=== PATIENT | male | born 1950 | race Hispanic/Latino ===

== ENCOUNTER 2024-12-08 12:22 | Inpatient (IN) | payer MEDICARE, OTHER ==
[~2024-12-08] VITALS: Ht 177.8 cm; Wt 86.2 kg
--- NOTE | 2024-12-08 12:33 | NUR ---
PT JUST NOW PLACED IN ED BED 20
[2024-12-08 13:14] LABS: BASOPHILS # (AUTO) 0.01 K/uL (0.00-0.20); BASOPHILS % (AUTO) 0.1 % (0.0-5.0); EOSINOPHILS # (AUTO) 0.04 K/uL (0.00-0.70); EOSINOPHILS % (AUTO) 0.3 % (0.0-8.0); IMMATURE GRANULOCYTE ABSOLUTE 0.28 K/uL (0-1); LYMPHOCYTES # (AUTO) 1.3 K/uL (1.0-4.8); LYMPHOCYTES % (AUTO) 9.3 % (21.0-51.0); MEAN CORPUSCULAR HEMOGLOBIN 32.5 pg (27.0-33.0); MEAN CORPUSCULAR HGB CONC 34.4 g/dL (32.0-36.0); MEAN CORPUSCULAR VOLUME 94.4 fL (79-99); MONOCYTES # (AUTO) 1.5 K/uL (0.1-1.0); NEUTROPHILS # (AUTO) 10.6 K/uL (1.8-7.7); NEUTROPHILS % (AUTO) 77.3 % (40.0-77.0); PLATELET COUNT (AUTO) 253 K/uL (130-400); RED CELL DISTRIBUTION WIDTH 12.5 % (11.0-15.5); WHITE BLOOD COUNT (AUTO) 13.8 K/uL (4.8-10.8)
[2024-12-08 13:22] LABS: POTASSIUM 4.3 mmol/L (3.5-5.1)
[2024-12-08 13:23] LABS: INR 1.05 (0.85-1.15); PROTHROMBIN TIME 11.1 SEC (9.6-11.6)
[2024-12-08 13:24] LABS: PARTIAL THROMBOPLASTIN TIME 30.6 SEC (26.3-35.5)
[2024-12-08 13:47] LABS: APPEARANCE,URINE TURBID (CLEAR); BILIRUBIN,URINE NEGATIVE (NEGATIVE); COLOR,URINE LIGHT-ORANGE (YELLOW); GLUCOSE, URINE (UA) NEGATIVE (NEGATIVE); KETONES,URINE NEGATIVE (NEGATIVE); LEUKOCYTE ESTERASE ,URINE 500 Leu/uL (NEGATIVE); NITRATE,URINE NEGATIVE (NEGATIVE); OCCULT BLOOD,URINE MODERATE (NEGATIVE); PROTEIN,URINE 50 mg/dL (NEGATIVE); UROBILINOGEN,URINE 0.2 mg/dL (0.2-1.0)
[2024-12-08 13:48] LABS: B-TYPE NATRIURETIC PEPTIDE 241 pg/mL (0-100)
[2024-12-08] MEDS: LACTATED RINGERS 1000ML 1,000 ML IV ONE (13:51)
[2024-12-08 13:58] LABS: ADD UA MICROSCOPIC YES
[2024-12-08 13:59] LABS: MUCUS,URINE Rare LPF (None Seen); WBC,URINE TNTC /HPF (0-1)
[2024-12-08 14:02] LABS: BACTERIA,URINE Moderate /HPF (None Seen)
--- NOTE | 2024-12-08 15:30 | ERN ---
General Chief Complaint: Urinary Retention Stated Complaint: HYPOTENSION/ PYRUIA Time Seen by MD: 12:29 History of Present Illness Initial Comments 74-year-old male history of BPH and hypotension and possibly CKD presents for episode of hypotension with dizziness. Patient reports that over the last week or so he has felt fatigued. He has been working outside more than usual so he thinks he may be dehydrated. He visited [facility] today as an outpatient and was found to have a blood pressure in the 60s. He denies any fevers, vomiting, diarrhea, dysuria or any other systemic illness. On arrival here, his blood pressure has improved. Patient reports he was recently told that he has weak kidneys/kidney disease, and he is pending follow up as an outpatient with the electric shipyard operator. Allergies: Coded Allergies: No Known Drug Allergies (Unverified Allergy, Unknown, 12/08/24) Past Medical History Past Medical History: Arrythmia, Hypotension, Prostatitis, UTI Medical History Other: [facility] Past Surgical History: None ROS Dictation CONSTITUTIONAL: Fatigue HEAD/FACE: No signs of trauma. EENT: No eye pain, no blurred vision, no tearing, no double vision, no ear pain, no ear discharge, no nose pain, no nasal congestion, no throat pain, no throat swelling, no mouth pain. RESPIRATORY: No cough, no orthopnea, no SOB, no stridor, no wheezing. CARDIOVASCULAR: No chest pain, no edema, no palpitations, no syncope. GASTROINTESTINAL/ABDOMINAL: No abdominal pain, no constipation, no diarrhea, no nausea, no vomiting. GENITOURINARY: No abnormal discharge, no dysuria, no frequent urination, no hematuria. No complaints of pain in the genitals. MUSCULOSKELETAL: No back pain, no gout, no joint pain, no joint swelling, no muscle pain, no muscle stiffness, no neck pain. INTEGUMENTARY: No change in color, no change in hair/nails, no dryness, no lesion, no lumps, no rash. NEUROLOGICAL/PSYCH: No anxiety, not depressed, no emotional problem, no headache, no numbness, no pre-existing deficit, no history of seizures, no tremors, no weakness. HEMATOLOGIC/LYMPHATIC: Not anemic, no history of blood clots, no apparent bleeding, no bruising, glands not swollen. All Systems Negative, Except as Noted. Physical Exam Physical Exam Dictation VITAL SIGNS: Reviewed. GENERAL APPEARANCE: Alert, oriented x3, no acute distress, obese. HEAD AND FACE: Non-traumatic. EYES: PERRL, pink conjunctivas, eyelid no trauma, anterior chamber clear. EARS: Pinnas intact and no signs of trauma or erythema. Ear canals clear and no discharge. TMs no erythema. NOSE: No discharge, no bleeding. OROPHARYNX: Mouth normal, teeth no caries, tongue pink. Pharynx clear, no erythema. Tonsils no exudates, no abscesses noted. Mucous membrane moist. NECK: Supple, non-tender, no thyromegaly, no masses, no JVD, no bruits. BREAST: Deferred. CHEST: No tenderness, no crepitus, no paradoxical movement, no retractions. LUNGS: Clear, well-ventilated, symmetric, no rales, no wheezing, no rhonchi, no stridor, good breath sounds bilaterally. HEART: Regular rate, regular rhythm, no murmur, no gallops. VASCULAR: No peripheral edema. ABDOMEN: Soft, positive bowel sounds, nondistended, no guarding, nontender, no rebound, no masses no hepatomegaly, no splenomegaly, no Borges's sign, no hernias. RECTAL: Deferred. GENITAL: Deferred. NEUROLOGICAL: Normal speech, gross motor function intact, gross sensory function intact. MUSCULOSKELETAL: Neck nontender, full range of motion, back nontender, full range of motion. EXTREMITIES: Nontender, full range of motion. SKIN: Color pink, dry, no turgor, no rash, no lacerations, no abrasions, no contusions. LYMPHATICS: Deferred. Results Laboratory and Microbiology Lab and Micro Result Laboratory Tests Test 12/08/24 12:59 12/08/24 13:29 White Blood Count 13.8 K/uL (4.8-10.8) H Red Blood Count 3.60 MIL/uL (4.50-6.20) L Hemoglobin 11.7 g/dL (14.0-18.0) L Hematocrit 34.0 % (42-54) L Mean Corpuscular Volume 94.4 fL (79-99) Mean Corpuscular Hemoglobin 32.5 pg (27.0-33.0) Mean Corpuscular Hemoglobin Concent 34.4 g/dL (32.0-36.0) Red Cell Distribution Width 12.5 % (11.0-15.5) Platelet Count 253 K/uL (130-400) Mean Platelet Volume 9.1 fL (7.5-10.5) Immature Granulocyte % (Auto) 2.0 % (0-1) H Neutrophils (%) (Auto) 77.3 % (40.0-77.0) H Lymphocytes (%) (Auto) 9.3 % (21.0-51.0) L Monocytes (%) (Auto) 11.0 % (3.0-13.0) Eosinophils (%) (Auto) 0.3 % (0.0-8.0) Basophils (%) (Auto) 0.1 % (0.0-5.0) Neutrophils # (Auto) 10.6 K/uL (1.8-7.7) H Lymphocytes # (Auto) 1.3 K/uL (1.0-4.8) Monocytes # (Auto) 1.5 K/uL (0.1-1.0) H Eosinophils # (Auto) 0.04 K/uL (0.00-0.70) Basophils # (Auto) 0.01 K/uL (0.00-0.20) Absolute Immature Granulocyte (auto 0.28 K/uL (0-1) Nucleated Red Blood Cells 0.0 % (0.0-0.19) White Cell Morphology Comment See comments Prothrombin Time 11.1 SEC (9.6-11.6) Prothromb Time International Ratio 1.05 (0.85-1.15) Activated Partial Thromboplast Time 30.6 SEC (26.3-35.5) Sodium Level 136 mmol/L (136-145) Potassium Level 4.3 mmol/L (3.5-5.1) Chloride Level 104 mmol/L (101-111) Carbon Dioxide Level 19 mmol/L (21-32) L Blood Urea Nitrogen 74 mg/dL (7-18) H Creatinine 4.0 mg/dL (0.5-1.3) H Glomerular Filtration Rate Calc 15 mL/min (>90) Random Glucose 106 mg/dL (70-105) H Lactic Acid Level 1.2 mmol/L (0.8-2.5) Total Calcium 8.2 mg/dL (8.5-10.1) L Total Creatine Kinase 28 U/L (21-232) Troponin I High Sensitivity 10.9 ng/L (4-75) B-Type Natriuretic Peptide 241 pg/mL (0-100) H Urine Color LIGHT-ORANGE (YELLOW) Urine Appearance TURBID (CLEAR) Urine pH 6.0 (5.0-8.0) Urine Specific [place] 1.008 (1.001-1.031) Urine Protein 50 mg/dL (NEGATIVE) H Urine Glucose (UA) NEGATIVE mg/dL (NEGATIVE) Urine Ketones NEGATIVE mg/dL (NEGATIVE) Urine Occult Blood MODERATE (NEGATIVE) H Urine Nitrate NEGATIVE (NEGATIVE) Urine Bilirubin NEGATIVE mg/dL (NEGATIVE) Urine Urobilinogen 0.2 mg/dL (0.2-1.0) Urine Leukocyte Esterase 500 Ekta/uL (NEGATIVE) H Urine RBC 11-25 /HPF (0-1) H Urine WBC TNTC /HPF (0-1) H Urine WBC Clumps (Auto) 2-5 /HPF (0-1) H Urine Bacteria Moderate /HPF (None Seen) H MDM CC: Fatigue over the last week, episode of hypotension Historian: Patient Comorbidities: Hypertension, BPH, likely CKD Limitations by social determinants of health Differential diagnosis includes vasovagal episode, syncope, sepsis, dehydration, electrolyte abnormality, arrhythmia, other. Vital signs: Blood pressure on arrival 114/72 otherwise vital signs faustino. His clinical exam is unremarkable. He is nontoxic in appearance. EKG: Sinus rhythm, rate of 104, normal axis, good R-wave progression, intervals are stable no STEMI. Independently interpreted by me. Labs (independently ordered and interpreted by me): Leukocytosis 13.8 K left shift no bands. Normocytic anemia hemoglobin 11.7. Coags are stable. The electrolytes are unremarkable. He does have a bicarb of 19 BUN is 74 creatinine of 4.0 GFR 15. Lactic acid stable, BNP and troponin are stable. According to the family, they said that his GFR maybe around the 40s, but they are unsure. This is maybe an DARIN. His urinalysis also shows moderate occult blood leuk esterase WBCs and bacteria. Consistent with a urinary tract infection. Treatment in ED: 2 L lactated Ringer's, Rocephin. Plan: Admission for UTI, AKA sepsis. ED Course Orders Procedure Category Date Status Time Urinalysis Profile LAB 12/08/24 Complete 12:37 Cardiac Panel LAB 12/08/24 Complete 12:44 Cbc With Differential LAB 12/08/24 Complete 12:44 Basic Metabolic Panel LAB 12/08/24 Complete 12:44 B-Type Natriuretic LAB 12/08/24 Complete Peptide 12:44 Prothrombin Time With LAB 12/08/24 Complete INR 12:44 Partial LAB 12/08/24 Complete Thromboplastin Time 12:44 Lactated Ringers PHA 12/08/24 Complete 1000ml (Lactated 13:00 Lactic Acid LAB 12/08/24 Complete 12:44 Blood Cult [place] 12/08/24 In Process 12:44 Culture Urine [place] 12/08/24 In Process 13:58 Ceftriaxone 1g Vial PHA 12/08/24 Complete (Rocephine 1g Inj) 14:30 12 Lead Ekg Tracing- EKG 12/08/24 Logged Technical 15:10 Troponin I High LAB 12/08/24 Logged Sensitivity 15:11 Lactated Ringers PHA 12/08/24 In Process 1000ml (Lactated 15:30 Current Medications Medications (Trade) Dose Ordered Sig/Moon Route PRN Reason Start Time Stop Time Status Last Admin Dose Admin Ceftriaxone Sodium (ROCEphine 1G INJ) 1 gm ONCE ONCE IVPB 12/08/24 14:30 12/08/24 14:31 DC Lactated Ringer's 1,000 ml @ 0 mls/hr ONCE ONCE IV 12/08/24 13:00 12/08/24 13:01 DC 12/08/24 13:51 Lactated Ringer's (Lactated Ringers 1000ml) 1,000 ml BOLUS IV 12/08/24 15:30 01/07/25 15:29 Vital Signs Date Time Temp Pulse Resp B/P (MAP) Pulse Ox O2 Delivery O2 Flow Rate FiO2 12/08/24 14:00 98.2 88 18 137/78 97 Room Air* 0 21 12/08/24 12:50 98.2 93 18 114/72 97 Room Air* 0 21 12/08/24 12:27 98.2 93 16 114/72 99 Room Air 0 DX & DISP Disposition: Inpatient ([facility]) Departure Impression: Primary Impression: UTI (urinary tract infection) Additional Impressions: DARIN (acute kidney injury), Transient hypotension Critical Time: 30 minutes (Critical Care Procedure NoteAuthorized and Performed by: meTotal critical care time: Approximately 36 minutesDue to a high probability of clinically significant, life threatening deterioration, the pa kedar required my highest level of preparedness to intervene emergently and I personally spent this critical care time directly and personally managing the patient. This critical care time included obtaining a history; examining the patient; pulse oximetry; ordering and review of studies; arranging urgent treatment with development of a management plan; evaluation of patient's resp onse to treatment; frequent reassessment; and, discussions with other providers.This critical care time was performed to assess and manage the high probability of imminent, life-threatening deterioration that could result in multi-organ failure. It was exclusive of separately billable procedures and treating other patients and teaching time.Please see MDM section and the rest of the note for further information on patient assessment and treatment.) Condition: Stable Referrals: ZOË MITCHELL MD (PCP) BEATRIZ MICHELE DO Dec 08, 2024 15:30
--- NOTE | 2024-12-08 15:48 | EKG ---
[facility] Test Date: 2024-12-08 Test Time: 15:15:51 Pat Name: GULSHAN FRANCISCO Department: [facility] Room: 319 Gender: M Cracker Off: [id number] : 1950 Requested By: BEATRIZ MICHELE Order Number: [id number] Reading MD: Maria Guadalupe Vang Measurements Intervals [place] Rate: 104 P: 59 SC: 203 QRS: 98 QRSD: 131 T: 1 QT: 353 QTc: 465 Interpretive Statements Sinus tachycardia IVCD, consider RBBB No previous ECG available for comparison Electronically Signed On 12-09-2024 13:21:34 CDT by Maria Guadalupe Vang Please click the below link to view image of tracing.
[2024-12-08] MEDS ORDERED: DiphenhydrAMINE HCL 50 MG/ML VIAL IV PRN (16:00)
[2024-12-08] MEDS ORDERED: ALPRAZolam 0.5 MG TABLET PO PRN (16:00)
[2024-12-08] MEDS ORDERED: DiphenhydrAMINE HCL 25 MG CAPSULE PO PRN (16:00)
[2024-12-08] MEDS ORDERED: LOPERAMIDE HCL 2 MG CAP PO PRN (16:00)
[2024-12-08] MEDS ORDERED: doCUSate SODIUM 100 MG CAP PO PRN (16:00)
[2024-12-08] MEDS ORDERED: acetaMINOPHEN 325 MG TAB PO PRN (16:00)
[2024-12-08] MEDS ORDERED: polyETHYLene GLYCol 3350 17 GM POWD.PACK PO PRN (16:00)
[2024-12-08] MEDS ORDERED: guaiFENesin SUGAR-FREE 100 MG/5 ML UDCUP PO PRN (16:00)
[2024-12-08] MEDS ORDERED: LIDOCAINE HCL 2% VISCOUS 30 ML, MAG/ALUM/SIMETH 30ML 30 ML, DICYCLOMINE HCL 20 MG PO PRN (16:00)
[2024-12-08] MEDS ORDERED: LACTULOSE 20 GM/30 ML UDCUP PO PRN (16:00)
[2024-12-08] MEDS ORDERED: MAG/ALUM/SIMETH 30 ML UDCUP PO PRN (16:00)
[2024-12-08] MEDS ORDERED: ARTIFICAL TEARS SOL 15 ML OP PRN (16:00)
[2024-12-08] MEDS ORDERED: NITROGLYCERIN 0.4 MG SL TAB SL PRN (16:00)
[2024-12-08] MEDS ORDERED: BENZOCAINE/MENTH/CETYLPYRD CL 1 EACH LOZENGE MM PRN (16:00)
[2024-12-08] MEDS ORDERED: ondanSETRON 4MG INJ IV PRN (16:00)
[2024-12-08] MEDS ORDERED: guaiFENesin-DM 200/20MG 10ML PO PRN (16:00)
[2024-12-08] MEDS ORDERED: ZOLPidem TARTrate 5 MG TAB PO PRN (16:00)
[2024-12-08] MEDS: cefTRIAXone 1G VIAL IVPB ONE (16:23)
[2024-12-08 16:32] VITALS: TEMP 100.6
[2024-12-08] MEDS: acetaMINOPHEN 325 MG TAB PO PRN (16:32)
--- NOTE | 2024-12-08 17:20 | NUR ---
REPORT GIVEN TO FRANKLYN GARCIA 319
--- NOTE | 2024-12-08 17:24 | HP ---
[facility] HISTORY & PHYSICAL Date Patient Seen: Dec 08, 2024 Time of Visit: 1929 Supervising Physician: [ Dr. Blayne Cerda Primary Care Physician: [Dr. Malloy] Outpatient Specialists: [ ] Inpatient Consults: [Dr. Giraldo-nephro, Dr. Smith-urology ] PROBLEM LIST: Sepsis-POA Acute cystitis-POA DARIN on CKD4-POA Dehydration-POA R/o pyelonephritis-POA Severe right hydronephrosis and mild hydroureter-POA Acute transient hypotension, resolved-POA BPH PLAN: -Admit to medsurg unit -IV fluid for hydration -Start on IV Rocephin -Obtain urine electrolytes and renal US -Obtain CT AP to r/o pyelonephritis and hydronephrosis -Consult Dr. Giraldo for nephrology -Monitor WBC trends, fever curve, SIRS/mews score and culture results -Obtain baseline ABG to rule-out metabolic acidosis -Start on sodium bicarb PO -Consulted Dr. Smith, urology-appreciate eval and recx concerning severe right hydronephrosis and mild hydroureter; okayed to insert christie HPI: [Electronic Technologist services provided by [employer]. Mr. Jackson is a 74-year-old male with PMH significant for BPH who was sent by his PCP's clinic due to BP in the 60's. Patient reports decreased urine output, fever, chills, dysuria, generalized weakness, fatigue and urinary frequency since last Wednesday. He came today to Dr. Malloy's clinic and was told his BP was low and needs to go to the hospital. He was told he will need to have a kidney stent placed but he is just waiting to be referred to a urologist. He denies abdominal or flank pain. Patient claims his only problem is BPH and denies other medical conditions. He was flagged meeting the sepsis criteria and was given IV fluids and IV Rocephin. Physical assessment was unrevealing without abdominal tenderness. On the side note: consulted urologist, Dr. Smith and will see the patient tonight. okayed to insert christie. ] PAST MEDICAL HX: see above PAST SURGICAL HX: noncontributory SOCIAL HISTORY: No tobacco, ETOH, or illicit drug use Coded Allergies: No Known Drug Allergies (Unverified Allergy, Unknown, 12/08/24) REVIEW OF SYSTEMS: 12 point ROS reviewed with patient. Pertinent positives mentioned above. Otherwise negative. PHYSICAL EXAM: GENERAL: alert, weak, awake oriented x 3 HEENT: EOMI, Sclera non icteric, dry mucosa, poor dentition NECK: Supple, no JVD, trachea midline LUNGS: Clear breath sounds bilaterally. No wheezes HEART: Regular rate and rhythm. Normal S1 and S2, without murmurs ABD: Abdomen soft, nontender. Bowel sounds present EXT: No clubbing cyanosis or edema NEURO: Alert and oriented to person, follows commands Vital Signs (last 8hr) Date Time Temp Pulse Resp B/P (MAP) Pulse Ox O2 Delivery O2 Flow Rate FiO2 12/08/24 17:10 101.1 114 20 129/72 99 Room Air* 0 12/08/24 16:32 100.6 12/08/24 16:29 100.6 111 20 143/72 97 Room Air* 0 12/08/24 14:00 98.2 88 18 137/78 97 Room Air* 0 12/08/24 12:50 98.2 93 18 114/72 97 Room Air* 0 12/08/24 12:27 98.2 93 16 114/72 99 Room Air 0 LABS: Hematology Labs: Test 12/08/24 12:59 Range/Units White Blood Count 13.8 H 4.8-10.8 K/uL Red Blood Count 3.60 L 4.50-6.20 MIL/uL Hemoglobin 11.7 L 14.0-18.0 g/dL Hematocrit 34.0 L 42-54 % Mean Corpuscular Volume 94.4 79-99 fL Mean Corpuscular Hemoglobin 32.5 27.0-33.0 pg Mean Corpuscular Hemoglobin Concent 34.4 32.0-36.0 g/dL Red Cell Distribution Width 12.5 11.0-15.5 % Platelet Count 253 130-400 K/uL Mean Platelet Volume 9.1 7.5-10.5 fL Immature Granulocyte % (Auto) 2.0 H 0-1 % Neutrophils (%) (Auto) 77.3 H 40.0-77.0 % Lymphocytes (%) (Auto) 9.3 L 21.0-51.0 % Monocytes (%) (Auto) 11.0 3.0-13.0 % Eosinophils (%) (Auto) 0.3 0.0-8.0 % Basophils (%) (Auto) 0.1 0.0-5.0 % Neutrophils # (Auto) 10.6 H 1.8-7.7 K/uL Lymphocytes # (Auto) 1.3 1.0-4.8 K/uL Monocytes # (Auto) 1.5 H 0.1-1.0 K/uL Eosinophils # (Auto) 0.04 0.00-0.70 K/uL Basophils # (Auto) 0.01 0.00-0.20 K/uL Absolute Immature Granulocyte (auto 0.28 0-1 K/uL Nucleated Red Blood Cells 0.0 0.0-0.19 % White Cell Morphology Comment See comments Chemistry Labs: Test 12/08/24 15:27 12/08/24 12:59 Range/Units Troponin I High Sensitivity 13 4-75 ng/L Sodium Level 136 136-145 mmol/L Potassium Level 4.3 3.5-5.1 mmol/L Chloride Level 104 101-111 mmol/L Carbon Dioxide Level 19 L 21-32 mmol/L Blood Urea Nitrogen 74 H 7-18 mg/dL Creatinine 4.0 H 0.5-1.3 mg/dL Glomerular Filtration Rate Calc 15 >90 mL/min Random Glucose 106 H 70-105 mg/dL Lactic Acid Level 1.2 0.8-2.5 mmol/L Total Calcium 8.2 L 8.5-10.1 mg/dL Total Creatine Kinase 28 21-232 U/L B-Type Natriuretic Peptide 241 H 0-100 pg/mL Coagulation Labs: Test 12/08/24 12:59 Range/Units Prothrombin Time 11.1 9.6-11.6 SEC Prothromb Time International Ratio 1.05 0.85-1.15 Activated Partial Thromboplast Time 30.6 26.3-35.5 SEC DIAGNOSTICS / RADIOLOGY RESULTS: [ ] PLAN NEURO: Minimize central acting medications as possible. Maintain fall precautions, adequate lighting during the day PULMONARY: Supplemental 02 as needed. Maintain aspiration precautions at all times CARDIOVASCULAR: Follow hemodynamics. Vital signs per facility protocol GI & NUTRITION: Continue with nutritional support. Continue stool softeners and laxatives as needed. KIDNEYS & ELECTROLYTES: Strict monitoring of intake, output and overall fluid balance. Avoid nephrotoxic medications to the extent possible. Medications to be dosed according to renal function. Monitor electrolytes and replace as needed ENDOCRINE: Maintain blood glucose between 100-180 at all times. Hypoglycemia protocol in place INFECTIOUS DISEASE: Trend temperature, WBC and procalcitonin level Follow cultures, deescalate antibiotics as soon as possible. Panculture if new onset fever ONCOLOGY/HEMATOLOGY/COAGULATION: Monitor for s/s of bleeding Monitor hemoglobin, coagulation studies as needed SKIN: Pressure ulcer prevention per facility protocol Specialty mattress ORTHO/REHAB: Continue PT/OT Prophylaxis: Continue GI and DVT prophylaxis Code Status: Full Resuscitation Disposition: TBD Other: Total patient care time: 35 minutes CALLIE HADDAD Dec 08, 2024 17:24
--- NOTE | 2024-12-08 18:47 | HMCIMG ---
ULTRASOUND RENAL COMPLETE INDICATION: chronic kidney disease TECHNIQUE: Routine ultrasound of the kidneys and urinary bladder with grayscale and color Doppler imaging was performed in real-time, and subsequently made available for review. COMPARISON: No prior studies available for comparison. FINDINGS: The right kidney measures 13.6 x 6.4 x 8.4 cm. No abnormal mass demonstrated. Severe hydronephrosis. The left kidney measures 8.8 x 4.1 x 4.5 cm. No abnormal mass demonstrated. No evidence for hydronephrosis or shadowing stone. Urinary bladder is distended with associated trabeculated encinas. Wall thickness measures up to 0.7 cm. 1.1 cm right urinary bladder wall diverticulum demonstrated. Prostate gland measures 3.9 x 3.3 x 3.9 cm. IMPRESSION: 1. Urinary bladder distention and severe right hydronephrosis. 2. Normal-sized prostate gland.
--- NOTE | 2024-12-08 19:10 | HMCIMG ---
CT ABDOMEN WITHOUT CONTRAST. CT PELVIS WITHOUT CONTRAST. INDICATION: Pyelonephritis/CKD? TECHNIQUE: Routine transaxial imaging using 5 mm slice thickness through the abdomen and pelvis without the administration of IV contrast. Thin slice reconstructions are also provided. Coronal and sagittal reformatted images acquired for interpretation. CT was performed with one or more of the following dose reduction techniques: Automated exposure control, adjustment of the mA and/or kV according to patient size, or use of iterative reconstruction technique. COMPARISON: None FINDINGS: ON NONCONTRAST IMAGING: ABDOMEN: Heart size is normal. Visible lung bases are clear. No abnormal left renal calcifications, hydronephrosis, perinephric inflammation, or proximal hydroureter detected. Severe right hydronephrosis and mild right hydroureter. The liver is normal in size and smooth in contour without biliary duct dilation. The spleen is normal in size and attenuation. The gallbladder appears normal. The pancreas appears normal without pancreatic duct dilation. The adrenal glands appear normal. No significant abdominal, retrocrural or retroperitoneal adenopathy noted. No evidence for intra-abdominal free air or organized fluid collection. Macro aorta PELVIS: Urinary bladder is distended and trabeculations noted along the urinary bladder wall. 4 cm diverticulum along the left urinary bladder wall. Smaller diverticulum along the right urinary bladder wall is better visualized on the recent sonographic imaging. Much smaller diverticulum measuring up to 1.0 cm along the urinary bladder dome. No evidence for free air or organized pelvic fluid collection. No significant pelvic adenopathy detected. Several diverticula along the distal colon. Terminal ileum appears unremarkable. The appendix appears normal. Prostate gland is normal in size and calcifications noted posteriorly. Visible osseous structures are intact. IMPRESSION: 1. Severe right hydronephrosis and mild right hydroureter, perhaps related to underlying stricture near the right ureteropelvic and/or ureterovesicular junctions. 2. Moderate urinary bladder distention and several small urinary bladder diverticula. 3. Distal colonic diverticulosis.
[2024-12-08 19:29] LABS: ABG BASE EXCESS -9.9 mmol/L (-2.0-3.0); ABG HCO3 13.3 mmol/L (21.0-28.0); ABG OXYGEN SATURATION 97.5 % (94.0-98.0); ABG PCO2 24 mmHg (35-48); ABG PH 7.362 (7.350-7.450); PO2, ARTERIAL BG 100.8 mmHg (83.0-108.0); VENT MODE, BG ROOMAIR (ROOM AIR)
[2024-12-08 20:00] VITALS: BP 99/58; PULSE 92; RESP 17; TEMP 98.1; O2SAT 98
[2024-12-08] MEDS: tamSULOsin HCL 0.4 MG CAP.ER.24H PO ONE ×2 (20:00→20:10)
--- NOTE | 2024-12-08 20:00 | NUR ---
SENIOR RADIATION PROTECTION TECHNICIAN RECEIVED REPORT FROM AM NURSE RADHA THAT PT JUST GOT BACK TO ROOM FROM CT. PT STILL PENDING ADMISSION. NEW ORDERS FOR BLADDER SCAN SEEN. CHANGED PT'S CLOTHES INTO HOSPITAL GOWN. NON-SKIN SOCKS PLACED ON PT. PLACED COMFORTABLY IN BED. BLADDER SCANNED PT AT 1950 AND SEEN 609 CC IN BLADDER. SENIOR RADIATION PROTECTION TECHNICIAN CALLIE IN TO SEE PT. REPORTED BLADDER SCAN RESULTS. V/S MONITORED BY PCP BP =99/58. SENIOR RADIATION PROTECTION TECHNICIAN ORDERED TO JUST GIVE ONE CAP OF FLOMAX. MEDICATED PT. SENIOR RADIATION PROTECTION TECHNICIAN STATED TO WAIT ON F/C INSERTION HE IS TRYING TO GET A HOLD OF DR THORNE AT THIS TIME. NEW ORDERS GIVEN, PLEASE REFER TO CPOE. ORIENTED PT TO ROOM AND UNIT. IN FOR MORE CARE AND MANAGEMENT. Addendum: 12/08/24 at 2247 by JUDITH ARMSTRONG RN RN Amended: Links added.
--- NOTE | 2024-12-08 20:40 | NUR ---
BRAKE HOLDER FARIDA LEDESMA INFORMS MANUFACTURING GROUP LEADER THAT DR THORNE HAS NOT ANSWERED HIS CALL YET. NEW ORDERS WERE PLACED, PLEASE REFER TO CPOE.
[2024-12-08] MEDS ORDERED: FAMOTIDINE 20MG TAB PO SCH (21:00)
[2024-12-08] MEDS ORDERED: FAMOTIDINE 20MG VIAL IV SCH (21:00)
[2024-12-08] MEDS: SODIUM BICARBONATE 650 MG TAB PO SCH (21:06)
--- NOTE | 2024-12-08 21:10 | NUR ---
MEDS NEW MED ORDER GIVEN, TOLERATED WELL. PT ONLY URINATED 30CC, SENT TO LAB FOR ANALYSIS. PT INFORMED THAT F/C ORDERED AND WILL BE INSERTED. PT VERBALIZES UNDERSTANDING.
--- NOTE | 2024-12-08 21:30 | NUR ---
F/C INSERTED F/C ON PT, IRA[place] 16, TOLERATED WELL. EVACUATED 650CC FROM F/C. KEPT COMFORTABLE IN BED. CALL LIGHT WITHIN REACH. ENCOURAGED TO REST AND SLEEP. CALL LIGHT WITHIN REACH.
[2024-12-08] MEDS ORDERED: TAMSULOSIN PO (22:08)
[2024-12-08] MEDS ORDERED: METF-444 PO (22:08)
[2024-12-08] MEDS ORDERED: CARV12.511 PO (22:08)
[2024-12-08] MEDS ORDERED: MIDO5TAB4 PO (22:08)
[2024-12-08] MEDS ORDERED: APIX5TAB PO (22:08)
[2024-12-08] MEDS ORDERED: FINA5TAB41 PO (22:08)
[2024-12-08] MEDS ORDERED: ATOR20TA65 PO (22:08)
[2024-12-08] MEDS: LACTATED RINGERS 1000ML IV SCH (22:17)
--- NOTE | 2024-12-08 23:55 | NUR ---
CONSULT DR THORNE IN TO SEE PT. NO NEW ORDERS GIVEN.
[2024-12-09] VITALS (8 sets, daily range): BP systolic 105–131; BP diastolic 56–73; PULSE 80–102; RESP 16–20; TEMP 97.9–99.9; O2SAT 96–97
--- NOTE | 2024-12-09 00:09 | CONS ---
CONSULTATION NOTE Date of Service: Dec 09, 2024 Reason for Consultation: Distended bladder/severe right-sided hydroureteronephrosis Requesting Physician: Blayne Cerda MD HISTORY OF PRESENT ILLNESS: 74-year-old male with PMH significant for BPH who was sent by his PCP's clinic due to BP in the 60's. Patient reports decreased urine output, fever, chills, dysuria, generalized weakness, fatigue and urinary frequency since last Wednesday. He came today to Dr. Malloy's clinic and was tod his BP was low and needs to go to the hospital. He was told he will need to have a stent places but he is just waiting to be referred to a urologist. He denies abdominal or flank pain. Patient claims his only problem is BPH and denies other medical conditions. He was flagged meeting the sepsis criteria and was given IV fluids and IV Rocephin. Physical assessment was unrevealing Patient seems to be dealing with chronic issues including urinary frequency and urgency. It is not quite clear if he takes any prostate medications in the home. A CT scan abdomen and pelvis obtained on presentation did show a severely distended bladder with diverticuli as well as right-sided hydroureteronephrosis with tortuosity of the ureter suggestive of a chronic process. Upon our urging a Parrish catheter was inserted in his draining lots of urine. REVIEW OF SYSTEMS CONSTITUTIONAL: Denies fever, chills, or fatigue. HEAD/FACE: No signs of trauma. EENT: Denies eye pain, blurred vision, double vision, or light sensitivity. RESPIRATORY: Denies shortness of breath, cough, wheezing CARDIOVASCULAR: Denies chest pain, palpitation, syncope GASTROINTESTINAL/ABDOMINAL: Denies abdominal pain, constipation, diarrhea, nausea or vomiting GENITOURINARY: Denies dysuria or hematuria. MUSCULOSKELETAL: Denies joint pain, tenderness, or trauma. INTEGUMENTARY: Denies rash or itchiness NEUROLOGICAL/PSYCH: Denies anxiety, depression, heat or cold intolerance. PAST MEDICAL HISTORY: Recurrent urinary tract infections BPH PAST SURGICAL HISTORY: Denies any previous surgeries PAST SOCIAL HISTORY: Denies ethanol, smoking and recreational drugs FAMILY HISTORY: Noncontributory to presenting complaint Coded Allergies: No Known Drug Allergies (Unverified Allergy, Unknown, 12/08/24) PHYSICAL EXAM EYES: Anicteric. Pupils equal and reactive. HENT: No oral thrush seen, moist Oral mucosa NECK: Supple, no JVD or thyromegaly. LUNGS: Good air entry. No rales, no rhonchi. CARDIOVASCULAR: S1, S2 regular. No murmur heard. ABDOMEN: Soft, non tender, bowel sounds present, no organomegaly CENTRAL NERVOUS SYSTEM: Awake, alert, oriented x 3. No focal deficits. SKIN: No rashes, no swelling. LYMPHATICS: No peripheral lymphadenopathy MUSCULOSKELETAL: No joint swelling, erythema or tenderness. EXTREMITIES: No cyanosis or clubbing BACK: No deformity, no pressure ulcer. GENITOURINARY: Parrish catheter is in place draining andrea colored urine Vital Sign (Last 24 Hours) 12/08/24 20:00 Temp 98.1 Pulse 92 Resp 17 B/P (MAP) 99/58 Pulse Ox 98 O2 Delivery Room Air O2 Flow Rate 0 FiO2 21 Intake & Output (last 24hrs) 12/08/24 12/08/24 12/09/24 15:00 23:00 07:00 Intake Total 200 ml Output Total 30 ml Balance 170 ml LABS: Laboratory: Test 12/08/24 21:00 12/08/24 20:24 12/08/24 19:28 12/08/24 15:27 Range/Units Urine Random Creatinine 54.00 30-135 mg/dL Urine Random Sodium 57 40-220 mmol/l Urine Random Potassium 18 L 25-125 mmol/L Urine Random Chloride 62 L 110-250 mmol/L Whole Blood Glucose 98 70-110 MG/DL Lactic Acid Level 1.1 0.8-2.5 mmol/L Procalcitonin 0.26 0.05-0.5 ng/mL Blood Gas Specimen Type Arterial Arterial Blood pH 7.362 7.350-7.450 Arterial Blood Partial Pressure CO2 24 L 35-48 mmHg Arterial Blood Partial Pressure O2 100.8 83.0-108.0 mmHg Arterial Blood HCO3 13.3 L 21.0-28.0 mmol/L Arterial Blood Oxygen Saturation 97.5 94.0-98.0 % Arterial Blood Base Excess -9.9 L -2.0-3.0 mmol/L Blood Gas Temperature 37.0 35.5-37.0 CELSIUS Blood Gas Vent Mode ROOMAIR ROOM AIR FiO2 21.0 % Blood Gas Specimen Comment RB NURSE GEOVANNA Troponin I High Sensitivity 13 4-75 ng/L Test 12/08/24 13:29 12/08/24 12:59 Range/Units Urine Color LIGHT-ORANGE YELLOW Urine Appearance TURBID CLEAR Urine pH 6.0 5.0-8.0 Urine Specific Johnston 1.008 1.001-1.031 Urine Protein 50 H NEGATIVE mg/dL Urine Glucose (UA) NEGATIVE NEGATIVE mg/dL Urine Ketones NEGATIVE NEGATIVE mg/dL Urine Occult Blood MODERATE H NEGATIVE Urine Nitrate NEGATIVE NEGATIVE Urine Bilirubin NEGATIVE NEGATIVE mg/dL Urine Urobilinogen 0.2 0.2-1.0 mg/dL Urine Leukocyte Esterase 500 H NEGATIVE Ekta/uL Urine RBC 11-25 H 0-1 /HPF Urine WBC TNTC H 0-1 /HPF Urine WBC Clumps (Auto) 2-5 H 0-1 /HPF Urine Bacteria Moderate H None Seen /HPF White Blood Count 13.8 H 4.8-10.8 K/uL Red Blood Count 3.60 L 4.50-6.20 MIL/uL Hemoglobin 11.7 L 14.0-18.0 g/dL Hematocrit 34.0 L 42-54 % Mean Corpuscular Volume 94.4 79-99 fL Mean Corpuscular Hemoglobin 32.5 27.0-33.0 pg Mean Corpuscular Hemoglobin Concent 34.4 32.0-36.0 g/dL Red Cell Distribution Width 12.5 11.0-15.5 % Platelet Count 253 130-400 K/uL Mean Platelet Volume 9.1 7.5-10.5 fL Immature Granulocyte % (Auto) 2.0 H 0-1 % Neutrophils (%) (Auto) 77.3 H 40.0-77.0 % Lymphocytes (%) (Auto) 9.3 L 21.0-51.0 % Monocytes (%) (Auto) 11.0 3.0-13.0 % Eosinophils (%) (Auto) 0.3 0.0-8.0 % Basophils (%) (Auto) 0.1 0.0-5.0 % Neutrophils # (Auto) 10.6 H 1.8-7.7 K/uL Lymphocytes # (Auto) 1.3 1.0-4.8 K/uL Monocytes # (Auto) 1.5 H 0.1-1.0 K/uL Eosinophils # (Auto) 0.04 0.00-0.70 K/uL Basophils # (Auto) 0.01 0.00-0.20 K/uL Absolute Immature Granulocyte (auto 0.28 0-1 K/uL Nucleated Red Blood Cells 0.0 0.0-0.19 % White Cell Morphology Comment See comments Prothrombin Time 11.1 9.6-11.6 SEC Prothromb Time International Ratio 1.05 0.85-1.15 Activated Partial Thromboplast Time 30.6 26.3-35.5 SEC Sodium Level 136 136-145 mmol/L Potassium Level 4.3 3.5-5.1 mmol/L Chloride Level 104 101-111 mmol/L Carbon Dioxide Level 19 L 21-32 mmol/L Blood Urea Nitrogen 74 H 7-18 mg/dL Creatinine 4.0 H 0.5-1.3 mg/dL Glomerular Filtration Rate Calc 15 >90 mL/min Random Glucose 106 H 70-105 mg/dL Total Calcium 8.2 L 8.5-10.1 mg/dL Total Creatine Kinase 28 21-232 U/L B-Type Natriuretic Peptide 241 H 0-100 pg/mL DIAGNOSTICS / RADIOLOGY: CT stone protocol shows a severely distended bladder with diverticuli, prostate is not too prominent, right-sided hydroureteronephrosis with proximal tortuosity of the ureter ASSESSMENT: 74-year-old man presents with chronic issues including urinary complaints diagn osed on imaging to have a chronic right-sided hydroureteronephrosis with bladder distention PLAN: 1. His bladder is so distended with diverticuli. We recommended the Parrish catheter be placed to gravity. 2. He has isolated right-sided hydroureteronephrosis with tortuosity, a phenomenon we normally see sometimes in an attempt for the system to equilibrate and dissipate is high pressures in the lower tract 3. Patient is going to need further management and further investigations. 60 minutes spent to complete a consult more than half of the time spent at bedside in counseling and coordination of care and addressing all questions and concerns post by patient, some time was spent discussing with members of his care team, the rest of the time was spent reviewing medical records. NEHA THORNE MD Dec 09, 2024 00:09
--- NOTE | 2024-12-09 05:40 | NUR ---
ROUNDS PT SLEPT AT INTERVALS DURING THE SHIFT. PT WAS UP TO THE RESTROOM AND HAD A BM. PT BACK IN BED AND KEPT COMFORTABLE. NO CONCERNS VERBALIZED AT THIS TIME. NO DISTRESS NOTED. CALL LIGHT WITHIN REACH. FOR MORE CARE.
[2024-12-09 06:06] LABS: BILIRUBIN,TOTAL 0.3 mg/dL (0.2-1.0); CREATININE 3.8 mg/dL (0.5-1.3); POTASSIUM 4.3 mmol/L (3.5-5.1); TOTAL PROTEIN, SERUM 6.4 g/dL (6.0-8.3)
--- NOTE | 2024-12-09 09:37 | PN ---
[facility] PROGRESS NOTE Date Patient Seen: Dec 09, 2024 Time of Visit: 09:37 Supervising Physician: Dr. Pedro Jimenez Primary Care Physician: [Dr. Malloy] Outpatient Specialists: [ ] Inpatient Consults: [Dr. Giraldo-nephro, Dr. Smith-urology ] PROBLEM LIST: Sepsis-POA Acute cystitis-POA DARIN on CKD4-POA Dehydration-POA R/o pyelonephritis-POA Severe right hydronephrosis and mild hydroureter-POA Acute transient hypotension, resolved-POA BPH PLAN: -Admit to medsurg unit -IV fluid for hydration -Start on IV Rocephin -Obtain urine electrolytes and renal US -Obtain CT AP to r/o pyelonephritis and hydronephrosis -Consult Dr. Giraldo for nephrology -Monitor WBC trends, fever curve, SIRS/mews score and culture results -Obtain baseline ABG to rule-out metabolic acidosis -Start on sodium bicarb PO -Consulted Dr. Smith, urology-appreciate eval and recx concerning severe right hydronephrosis and mild hydroureter; okayed to insert christie INTERVAL HISTORY: Patient evaluated at bedside with his daughter present, he is currently sitting up eating dinner. Patient's white count today is 13.8 and creatinine 3.8. He continues on Rocephin at this time. Patient is being followed by Urology at this time with further plans for possible intervention on this admission. Urine in his Christie bag is dark however there does not appear to be any pyuria or hematuria at this time. Patient advised that we will continue with medical management at this time and follow directions provided by Urology. Patient expressed understanding, daughter with several questions at bedside that were answered. Continue with antibiotics and fluid resuscitation at this time. REVIEW OF SYSTEMS: 12 point ROS reviewed with patient. Pertinent positives mentioned above. Otherwise negative. PHYSICAL EXAM: GENERAL: alert, weak, awake oriented x 3 HEENT: EOMI, Sclera non icteric, dry mucosa, poor dentition NECK: Supple, no JVD, trachea midline LUNGS: Clear breath sounds bilaterally. No wheezes HEART: Regular rate and rhythm. Normal S1 and S2, without murmurs ABD: Abdomen soft, nontender. Bowel sounds present EXT: No clubbing cyanosis or edema NEURO: Alert and oriented to person, follows commands Vital Signs (last 8hr) Date Time Temp Pulse Resp B/P (MAP) Pulse Ox O2 Delivery O2 Flow Rate FiO2 12/09/24 08:00 98.4 96 16 114/69 96 Room Air 21 12/09/24 04:28 99.9 102 18 129/64 100 Room Air LABS: Hematology Labs: Test 12/08/24 12:59 Range/Units White Blood Count 13.8 H 4.8-10.8 K/uL Red Blood Count 3.60 L 4.50-6.20 MIL/uL Hemoglobin 11.7 L 14.0-18.0 g/dL Hematocrit 34.0 L 42-54 % Mean Corpuscular Volume 94.4 79-99 fL Mean Corpuscular Hemoglobin 32.5 27.0-33.0 pg Mean Corpuscular Hemoglobin Concent 34.4 32.0-36.0 g/dL Red Cell Distribution Width 12.5 11.0-15.5 % Platelet Count 253 130-400 K/uL Mean Platelet Volume 9.1 7.5-10.5 fL Immature Granulocyte % (Auto) 2.0 H 0-1 % Neutrophils (%) (Auto) 77.3 H 40.0-77.0 % Lymphocytes (%) (Auto) 9.3 L 21.0-51.0 % Monocytes (%) (Auto) 11.0 3.0-13.0 % Eosinophils (%) (Auto) 0.3 0.0-8.0 % Basophils (%) (Auto) 0.1 0.0-5.0 % Neutrophils # (Auto) 10.6 H 1.8-7.7 K/uL Lymphocytes # (Auto) 1.3 1.0-4.8 K/uL Monocytes # (Auto) 1.5 H 0.1-1.0 K/uL Eosinophils # (Auto) 0.04 0.00-0.70 K/uL Basophils # (Auto) 0.01 0.00-0.20 K/uL Absolute Immature Granulocyte (auto 0.28 0-1 K/uL Nucleated Red Blood Cells 0.0 0.0-0.19 % White Cell Morphology Comment See comments Chemistry Labs: Test 12/09/24 05:40 12/09/24 05:27 12/08/24 20:24 12/08/24 15:27 Range/Units Sodium Level 139 136-145 mmol/L Potassium Level 4.3 3.5-5.1 mmol/L Chloride Level 110 101-111 mmol/L Carbon Dioxide Level 18 L 21-32 mmol/L Blood Urea Nitrogen 70 H 7-18 mg/dL Creatinine 3.8 H 0.5-1.3 mg/dL Glomerular Filtration Rate Calc 16 >90 mL/min Random Glucose 94 70-105 mg/dL Total Calcium 8.8 8.5-10.1 mg/dL Total Bilirubin 0.3 0.2-1.0 mg/dL Aspartate Amino Transf (AST/SGOT) 15 10-37 U/L Alanine Aminotransferase (ALT/SGPT) 10 L 12-78 U/L Alkaline Phosphatase 88 50-136 U/L Total Protein 6.4 6.0-8.3 g/dL Albumin 2.0 L 3.5-5.0 g/dL Whole Blood Glucose 83 70-110 MG/DL Lactic Acid Level 1.1 0.8-2.5 mmol/L Procalcitonin 0.26 0.05-0.5 ng/mL Troponin I High Sensitivity 13 4-75 ng/L Test 12/08/24 12:59 Range/Units Total Creatine Kinase 28 21-232 U/L B-Type Natriuretic Peptide 241 H 0-100 pg/mL Coagulation Labs: Test 12/08/24 12:59 Range/Units Prothrombin Time 11.1 9.6-11.6 SEC Prothromb Time International Ratio 1.05 0.85-1.15 Activated Partial Thromboplast Time 30.6 26.3-35.5 SEC DIAGNOSTICS / RADIOLOGY RESULTS: [ ] PLAN NEURO: Minimize central acting medications as possible. Maintain fall precautions, adequate lighting during the day PULMONARY: Supplemental 02 as needed. Maintain aspiration precautions at all times CARDIOVASCULAR: Follow hemodynamics. Vital signs per facility protocol GI & NUTRITION: Continue with nutritional support. Continue stool softeners and laxatives as needed. KIDNEYS & ELECTROLYTES: Strict monitoring of intake, output and overall fluid balance. Avoid nephrotoxic medications to the extent possible. Medications to be dosed according to renal function. Monitor electrolytes and replace as needed ENDOCRINE: Maintain blood glucose between 100-180 at all times. Hypoglycemia protocol in place INFECTIOUS DISEASE: Trend temperature, WBC and procalcitonin level Follow cultures, deescalate antibiotics as soon as possible. Panculture if new onset fever ONCOLOGY/HEMATOLOGY/COAGULATION: Monitor for s/s of bleeding Monitor hemoglobin, coagulation studies as needed SKIN: Pressure ulcer prevention per facility protocol Specialty mattress ORTHO/REHAB: Continue PT/OT Prophylaxis: Continue GI and DVT prophylaxis Code Status: Full Resuscitation Disposition: TBD Other: Total patient care time: 35 minutes SAIGE SCOTT Dec 09, 2024 09:37
[2024-12-09] MEDS: cefTRIAXone 2GM VIAL IVPB SCH (09:44)
[2024-12-09] MEDS: FAMOTIDINE 20MG TAB PO SCH (09:44)
--- NOTE | 2024-12-09 12:42 | CONS ---
REFERRING PHYSICIAN: Blayne Lindsey MD REASON FOR CONSULTATION: Renal failure. HISTORY OF PRESENT ILLNESS: A 74-year-old male with a history of known BPH. The patient presented to the hospital with complaints of difficulty with urination. The patient was having fever and chills at home. In the Emergency Room, the patient was found to have significant pyuria and was started on antibiotics. The patient's CT scan revealed distended bladder with right-sided hydronephrosis. The patient was seen by Urology. Parrish catheter was placed. The patient's laboratory values revealed significant renal dysfunction and the patient being seen in consultation for all of the above. PAST MEDICAL HISTORY: BPH and hypertension. PAST SURGICAL HISTORY: No surgeries. SOCIAL HISTORY: He lives independently. No active tobacco use. FAMILY HISTORY: There is no renal disease in the family. ALLERGIES: There are no allergies. MEDICATIONS: Noted. REVIEW OF SYSTEMS: GENERAL: He is feeling improved since admission. HEENT: No change in vision. No change in hearing. CARDIOVASCULAR: There is no current chest pain or palpitations. PULMONARY: There is no shortness of breath. GASTROINTESTINAL: He has been started on a diet. MUSCULOSKELETAL: Complaints of weakness. NEUROLOGIC: No seizures or focal deficits. PSYCHIATRIC: No history of hallucination or psychosis. ENDOCRINE: He denies diabetes mellitus or thyroid disease. HEME: No history of anemia or malignancy. PHYSICAL EXAMINATION: VITAL SIGNS: Blood pressure is 129/64, pulse in the 100s. T-max was 101 degrees Fahrenheit. GENERAL: He is a chronically ill male, elderly, lying in bed on the medical floor. HEENT: Head is atraumatic. Pupils are equal, roving to light. Oropharynx is without exudate. Nares clear. NECK: There is no JVP. There is no thyromegaly. No mass. CARDIOVASCULAR: Regular. There is no S3 or S4 gallop. LUNGS: Coarse with equal thoracic movement. ABDOMEN: Soft, nondistended, nontender. EXTREMITIES: There is no clubbing or cyanosis. NEUROLOGICAL: He is awake. He is alert. He is oriented. SKIN: Reveals no rashes or nodules. BACK: There is no CVA tenderness. No back deformities. LABORATORY DATA: Hemoglobin 11, hematocrit 34, white count is 14,000. Sodium 139, potassium 4.3, chloride 110, bicarbonate is 18, BUN 70, creatinine is 3.8. Urinalysis reveals pyuria. Urine culture grew gram-negative michelle. Sensitivities are pending. IMPRESSION: * Acute on chronic renal failure. * Obstructive uropathy. * Pyelonephritis. * BPH. PLAN: The patient presents to the hospital with acute renal failure. The patient with evidence of significant hydronephrosis. Parrish catheter has been placed. The patient was seen by Urology. The patient does have evidence of significant pyuria and has been started on antibiotics. Cultures are all pending. The patient has been placed on sodium bicarb for the acidosis. All labs can be repeated in the a.m. There is no acute need for any form of renal replacement therapy at this time. Once the patient is discharged, he had to follow up with the Urology. We will continue to follow closely. I did have a long discussion with the patient and family, all questions were answered. TID: [id number] RECEIPT: [id number]
[2024-12-10] VITALS (7 sets, daily range): BP systolic 100–122; BP diastolic 57–70; PULSE 82–91; RESP 16–20; TEMP 97.4–98; O2SAT 95–96
[2024-12-10 05:53] LABS: BASOPHILS # (AUTO) 0.02 K/uL (0.00-0.20); BASOPHILS % (AUTO) 0.2 % (0.0-5.0); EOSINOPHILS # (AUTO) 0.14 K/uL (0.00-0.70); EOSINOPHILS % (AUTO) 1.1 % (0.0-8.0); HEMATOCRIT 34.8 % (42-54); IMMATURE GRANULOCYTE ABSOLUTE 0.19 K/uL (0-1); LYMPHOCYTES # (AUTO) 1.1 K/uL (1.0-4.8); LYMPHOCYTES % (AUTO) 8.6 % (21.0-51.0); MEAN CORPUSCULAR HEMOGLOBIN 31.9 pg (27.0-33.0); MEAN CORPUSCULAR HGB CONC 33.6 g/dL (32.0-36.0); MEAN CORPUSCULAR VOLUME 94.8 fL (79-99); MONOCYTES # (AUTO) 1.1 K/uL (0.1-1.0); MONOCYTES % (AUTO) 8.9 % (3.0-13.0); NEUTROPHILS # (AUTO) 9.8 K/uL (1.8-7.7); NEUTROPHILS % (AUTO) 79.7 % (40.0-77.0); PLATELET COUNT (AUTO) 313 K/uL (130-400); RED BLOOD CELL COUNT(AUTO) 3.67 MIL/uL (4.50-6.20); RED CELL DISTRIBUTION WIDTH 12.7 % (11.0-15.5); WHITE BLOOD COUNT (AUTO) 12.3 K/uL (4.8-10.8)
[2024-12-10 06:06] LABS: CREATININE 3.4 mg/dL (0.5-1.3); PHOSPHORUS 3.6 mg/dL (2.5-4.9); POTASSIUM 4.2 mmol/L (3.5-5.1)
[2024-12-10] MEDS ORDERED: levoFLOXacin 750 MG/D5W 150ML BAG IV SCH (09:30)
--- NOTE | 2024-12-10 09:40 | PN ---
[facility] PROGRESS NOTE Date Patient Seen: Dec 10, 2024 Time of Visit: 09:40 Supervising Physician: Dr. Pedro Jimenez Primary Care Physician: [Dr. Malloy] Outpatient Specialists: [ ] Inpatient Consults: [Dr. Giraldo-nephro, Dr. Smith-urology ] PROBLEM LIST: Sepsis-POA Acute cystitis-POA DARIN on CKD4-POA Dehydration-POA R/o pyelonephritis-POA Severe right hydronephrosis and mild hydroureter-POA Acute transient hypotension, resolved-POA BPH PLAN: -Admit to medsurg unit -IV fluid for hydration -Start on IV Rocephin -Obtain urine electrolytes and renal US -Obtain CT AP to r/o pyelonephritis and hydronephrosis -Consult Dr. Giraldo for nephrology -Monitor WBC trends, fever curve, SIRS/mews score and culture results -Obtain baseline ABG to rule-out metabolic acidosis -Start on sodium bicarb PO -Consulted Dr. Smith, urology-appreciate eval and recx concerning severe right hydronephrosis and mild hydroureter; okayed to insert christie INTERVAL HISTORY: Patient evaluated at bedside with his daughter present, he is sitting up at the moment, eating and tolerating his lunch. Patient's urine in the Christie bag appears light yellow, only small had few clots seen in the line. He denies any discomfort at this time. Patient positive for Pseudomonas in the urine, he has been switched to levofloxacin as of today. Urology has visited with the patient, there is a CT of the abdomen and pelvis without contrast ordered for tomorrow to ensure drainage of hydronephrosis. If there is not drainage patient could possibly undergo stenting on this admission, otherwise patient was cleared by Urology to discharge with Christie in place and visit him as outpatient. Patient and daughter have been updated on the current treatment plan and enter in agreement at this time. REVIEW OF SYSTEMS: 12 point ROS reviewed with patient. Pertinent positives mentioned above. Otherwise negative. PHYSICAL EXAM: GENERAL: alert, weak, awake oriented x 3 HEENT: EOMI, Sclera non icteric, dry mucosa, poor dentition NECK: Supple, no JVD, trachea midline LUNGS: Clear breath sounds bilaterally. No wheezes HEART: Regular rate and rhythm. Normal S1 and S2, without murmurs ABD: Abdomen soft, nontender. Bowel sounds present EXT: No clubbing cyanosis or edema NEURO: Alert and oriented to person, follows commands Vital Signs (last 8hr) Date Time Temp Pulse Resp B/P (MAP) Pulse Ox O2 Delivery O2 Flow Rate FiO2 12/10/24 08:00 97.9 84 16 117/70 96 Room Air 21 12/10/24 03:46 98.1 87 20 122/70 95 Room Air LABS: Hematology Labs: Test 12/10/24 05:26 12/08/24 12:59 Range/Units White Blood Count 12.3 H 4.8-10.8 K/uL Red Blood Count 3.67 L 4.50-6.20 MIL/uL Hemoglobin 11.7 L 14.0-18.0 g/dL Hematocrit 34.8 L 42-54 % Mean Corpuscular Volume 94.8 79-99 fL Mean Corpuscular Hemoglobin 31.9 27.0-33.0 pg Mean Corpuscular Hemoglobin Concent 33.6 32.0-36.0 g/dL Red Cell Distribution Width 12.7 11.0-15.5 % Platelet Count 313 130-400 K/uL Mean Platelet Volume 9.0 7.5-10.5 fL Immature Granulocyte % (Auto) 1.5 H 0-1 % Neutrophils (%) (Auto) 79.7 H 40.0-77.0 % Lymphocytes (%) (Auto) 8.6 L 21.0-51.0 % Monocytes (%) (Auto) 8.9 3.0-13.0 % Eosinophils (%) (Auto) 1.1 0.0-8.0 % Basophils (%) (Auto) 0.2 0.0-5.0 % Neutrophils # (Auto) 9.8 H 1.8-7.7 K/uL Lymphocytes # (Auto) 1.1 1.0-4.8 K/uL Monocytes # (Auto) 1.1 H 0.1-1.0 K/uL Eosinophils # (Auto) 0.14 0.00-0.70 K/uL Basophils # (Auto) 0.02 0.00-0.20 K/uL Absolute Immature Granulocyte (auto 0.19 0-1 K/uL Nucleated Red Blood Cells 0.0 0.0-0.19 % White Cell Morphology Comment See comments Chemistry Labs: Test 12/10/24 05:26 12/10/24 05:21 12/09/24 05:40 12/08/24 20:24 Range/Units Sodium Level 143 136-145 mmol/L Potassium Level 4.2 3.5-5.1 mmol/L Chloride Level 110 101-111 mmol/L Carbon Dioxide Level 23 21-32 mmol/L Blood Urea Nitrogen 59 H 7-18 mg/dL Creatinine 3.4 H 0.5-1.3 mg/dL Glomerular Filtration Rate Calc 18 >90 mL/min Random Glucose 106 H 70-105 mg/dL Total Calcium 8.7 8.5-10.1 mg/dL Phosphorus Level 3.6 2.5-4.9 mg/dL Whole Blood Glucose 72 70-110 MG/DL Total Bilirubin 0.3 0.2-1.0 mg/dL Aspartate Amino Transf (AST/SGOT) 15 10-37 U/L Alanine Aminotransferase (ALT/SGPT) 10 L 12-78 U/L Alkaline Phosphatase 88 50-136 U/L Total Protein 6.4 6.0-8.3 g/dL Albumin 2.0 L 3.5-5.0 g/dL Lactic Acid Level 1.1 0.8-2.5 mmol/L Procalcitonin 0.26 0.05-0.5 ng/mL Test 12/08/24 15:27 12/08/24 12:59 Range/Units Troponin I High Sensitivity 13 4-75 ng/L Total Creatine Kinase 28 21-232 U/L B-Type Natriuretic Peptide 241 H 0-100 pg/mL Coagulation Labs: Test 12/08/24 12:59 Range/Units Prothrombin Time 11.1 9.6-11.6 SEC Prothromb Time International Ratio 1.05 0.85-1.15 Activated Partial Thromboplast Time 30.6 26.3-35.5 SEC DIAGNOSTICS / RADIOLOGY RESULTS: [ ] PLAN NEURO: Minimize central acting medications as possible. Maintain fall precautions, adequate lighting during the day PULMONARY: Supplemental 02 as needed. Maintain aspiration precautions at all times CARDIOVASCULAR: Follow hemodynamics. Vital signs per facility protocol GI & NUTRITION: Continue with nutritional support. Continue stool softeners and laxatives as needed. KIDNEYS & ELECTROLYTES: Strict monitoring of intake, output and overall fluid balance. Avoid nephrotoxic medications to the extent possible. Medications to be dosed according to renal function. Monitor electrolytes and replace as needed ENDOCRINE: Maintain blood glucose between 100-180 at all times. Hypoglycemia protocol in place INFECTIOUS DISEASE: Trend temperature, WBC and procalcitonin level Follow cultures, deescalate antibiotics as soon as possible. Panculture if new onset fever ONCOLOGY/HEMATOLOGY/COAGULATION: Monitor for s/s of bleeding Monitor hemoglobin, coagulation studies as needed SKIN: Pressure ulcer prevention per facility protocol Specialty mattress ORTHO/REHAB: Continue PT/OT Prophylaxis: Continue GI and DVT prophylaxis Code Status: Full Resuscitation Disposition: TBD Other: Total patient care time: 35 minutes SAIGE SCOTT Dec 10, 2024 09:40
[2024-12-10] MEDS: levoFLOXacin 750 MG/D5W 150 ML 150 ML IV SCH (10:06)
--- NOTE | 2024-12-10 11:45 | PN ---
PROGRESS NOTE Date of Service: Dec 10, 2024 Time of Service: 11:42 SUBJECTIVE: Patient doing much better. Resting comfortably in a chair. Daughter present at bedside and we had a very long conversation. He already has a Parrish catheter in place the distal draining turbid urine. Blood pressures are holding steady. Renal function tests show a trend towards improvement. REVIEW OF SYSTEMS CONSTITUTIONAL: Denies fever, chills, or fatigue. HEAD/FACE: No signs of trauma. EENT: Denies eye pain, blurred vision, double vision, or light sensitivity. RESPIRATORY: Denies shortness of breath, cough, wheezing CARDIOVASCULAR: Denies chest pain, palpitation, syncope GASTROINTESTINAL/ABDOMINAL: Denies abdominal pain, constipation, diarrhea, nausea or vomiting GENITOURINARY: Denies dysuria or hematuria. MUSCULOSKELETAL: Denies joint pain, tenderness, or trauma. INTEGUMENTARY: Denies rash or itchiness NEUROLOGICAL/PSYCH: Denies anxiety, depression, heat or cold intolerance. PHYSICAL EXAM EYES: Anicteric. Pupils equal and reactive. HENT: No oral thrush seen, moist Oral mucosa NECK: Supple, no JVD or thyromegaly. LUNGS: Good air entry. No rales, no rhonchi. CARDIOVASCULAR: S1, S2 regular. No murmur heard. ABDOMEN: Soft, non tender, bowel sounds present, no organomegaly CENTRAL NERVOUS SYSTEM: Awake, alert, oriented x 3. No focal deficits. SKIN: No rashes, no swelling. LYMPHATICS: No peripheral lymphadenopathy MUSCULOSKELETAL: No joint swelling, erythema or tenderness. EXTREMITIES: No cyanosis or clubbing BACK: No deformity, no pressure ulcer. GENITOURINARY: Parrish catheter is in place draining andrea colored and turbid urine Vital Signs (last 8hr) Date Time Temp Pulse Resp B/P (MAP) Pulse Ox O2 Delivery O2 Flow Rate FiO2 12/10/24 08:00 97.9 84 16 117/70 96 Room Air 21 12/10/24 03:46 98.1 87 20 122/70 95 Room Air LABS: Laboratory: Test 12/10/24 05:26 12/10/24 05:21 12/09/24 05:40 12/08/24 21:00 Range/Units White Blood Count 12.3 H 4.8-10.8 K/uL Red Blood Count 3.67 L 4.50-6.20 MIL/uL Hemoglobin 11.7 L 14.0-18.0 g/dL Hematocrit 34.8 L 42-54 % Mean Corpuscular Volume 94.8 79-99 fL Mean Corpuscular Hemoglobin 31.9 27.0-33.0 pg Mean Corpuscular Hemoglobin Concent 33.6 32.0-36.0 g/dL Red Cell Distribution Width 12.7 11.0-15.5 % Platelet Count 313 130-400 K/uL Mean Platelet Volume 9.0 7.5-10.5 fL Immature Granulocyte % (Auto) 1.5 H 0-1 % Neutrophils (%) (Auto) 79.7 H 40.0-77.0 % Lymphocytes (%) (Auto) 8.6 L 21.0-51.0 % Monocytes (%) (Auto) 8.9 3.0-13.0 % Eosinophils (%) (Auto) 1.1 0.0-8.0 % Basophils (%) (Auto) 0.2 0.0-5.0 % Neutrophils # (Auto) 9.8 H 1.8-7.7 K/uL Lymphocytes # (Auto) 1.1 1.0-4.8 K/uL Monocytes # (Auto) 1.1 H 0.1-1.0 K/uL Eosinophils # (Auto) 0.14 0.00-0.70 K/uL Basophils # (Auto) 0.02 0.00-0.20 K/uL Absolute Immature Granulocyte (auto 0.19 0-1 K/uL Nucleated Red Blood Cells 0.0 0.0-0.19 % Sodium Level 143 136-145 mmol/L Potassium Level 4.2 3.5-5.1 mmol/L Chloride Level 110 101-111 mmol/L Carbon Dioxide Level 23 21-32 mmol/L Blood Urea Nitrogen 59 H 7-18 mg/dL Creatinine 3.4 H 0.5-1.3 mg/dL Glomerular Filtration Rate Calc 18 >90 mL/min Random Glucose 106 H 70-105 mg/dL Total Calcium 8.7 8.5-10.1 mg/dL Phosphorus Level 3.6 2.5-4.9 mg/dL Whole Blood Glucose 72 70-110 MG/DL Total Bilirubin 0.3 0.2-1.0 mg/dL Aspartate Amino Transf (AST/SGOT) 15 10-37 U/L Alanine Aminotransferase (ALT/SGPT) 10 L 12-78 U/L Alkaline Phosphatase 88 50-136 U/L Total Protein 6.4 6.0-8.3 g/dL Albumin 2.0 L 3.5-5.0 g/dL Urine Random Creatinine 54.00 30-135 mg/dL Urine Random Sodium 57 40-220 mmol/l Urine Random Potassium 18 L 25-125 mmol/L Urine Random Chloride 62 L 110-250 mmol/L Test 12/08/24 20:24 12/08/24 19:28 12/08/24 15:27 12/08/24 13:29 Range/Units Lactic Acid Level 1.1 0.8-2.5 mmol/L Procalcitonin 0.26 0.05-0.5 ng/mL Blood Gas Specimen Type Arterial Arterial Blood pH 7.362 7.350-7.450 Arterial Blood Partial Pressure CO2 24 L 35-48 mmHg Arterial Blood Partial Pressure O2 100.8 83.0-108.0 mmHg Arterial Blood HCO3 13.3 L 21.0-28.0 mmol/L Arterial Blood Oxygen Saturation 97.5 94.0-98.0 % Arterial Blood Base Excess -9.9 L -2.0-3.0 mmol/L Blood Gas Temperature 37.0 35.5-37.0 CELSIUS Blood Gas Vent Mode ROOMAIR ROOM AIR FiO2 21.0 % Blood Gas Specimen Comment RB NURSE MIRAND Troponin I High Sensitivity 13 4-75 ng/L Urine Color LIGHT-ORANGE YELLOW Urine Appearance TURBID CLEAR Urine pH 6.0 5.0-8.0 Urine Specific [place] 1.008 1.001-1.031 Urine Protein 50 H NEGATIVE mg/dL Urine Glucose (UA) NEGATIVE NEGATIVE mg/dL Urine Ketones NEGATIVE NEGATIVE mg/dL Urine Occult Blood MODERATE H NEGATIVE Urine Nitrate NEGATIVE NEGATIVE Urine Bilirubin NEGATIVE NEGATIVE mg/dL Urine Urobilinogen 0.2 0.2-1.0 mg/dL Urine Leukocyte Esterase 500 H NEGATIVE [place]/uL Urine RBC 11-25 H 0-1 /HPF Urine WBC TNTC H 0-1 /HPF Urine WBC Clumps (Auto) 2-5 H 0-1 /HPF Urine Bacteria Moderate H None Seen /HPF Test 12/08/24 12:59 Range/Units White Cell Morphology Comment See comments Prothrombin Time 11.1 9.6-11.6 SEC Prothromb Time International Ratio 1.05 0.85-1.15 Activated Partial Thromboplast Time 30.6 26.3-35.5 SEC Total Creatine Kinase 28 21-232 U/L B-Type Natriuretic Peptide 241 H 0-100 pg/mL DIAGNOSTICS / RADIOLOGY: CT stone protocol shows a severely distended bladder with diverticuli, prostate is not too prominent, right-sided hydroureteronephrosis with proximal tortuosity of the ureter ASSESSMENT: 74-year-old man presents with chronic issues including urinary complaints diagnosed on imaging to have a chronic right-sided hydroureteronephrosis with bladder distention PLAN: 1. His bladder is so distended with diverticuli. We recommended the Parrish catheter be placed to gravity. Parrish catheter continues to drain turbid urine. 2. He has isolated right-sided hydroureteronephrosis with tortuosity. Renal function tests improving. We will obtain a repeat CT scan to be obtained tomorrow 12/11/2024 and if there was appropriate drainage of the upper tract and I will recommend patient be discharged home with a Parrish catheter. If however there is not an appropriate drainage then we can consider an intervention in- house such as stent placement before patient leaves the hospital. 3. Patient is going to need further management and further investigations in an ambulatory setting including urodynamics. 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 5 minutes spent completing this visit, more than half of the time was spent discussing with patient as well as daughter present at bedside. All their questions were answered to their satisfaction. Some time was spent discussing with members of his care team. The rest of the time was spent reviewing medical records. NEHA THORNE MD Dec 10, 2024 11:45
--- NOTE | 2024-12-10 14:03 | PN ---
FOLLOWUP PROGRESS NOTE SUBJECTIVE: The patient is a 74-year-old male with a history of hypertension, presents with a history of known obstructive uropathy. The patient presented with a Parrish catheter placed. The patient's renal function continues to improve. The patient's workup did reveal hydronephrosis. The patient was seen by Urology. He remains on the antibiotics, and the patient is being seen as a followup visit for all of the above. REVIEW OF SYSTEMS: CONSTITUTIONAL: He is feeling improved today. HEENT: No change in vision. No change in hearing. CARDIOVASCULAR: There is no current chest pain or palpitations. PULMONARY: No shortness of breath. GASTROINTESTINAL: The patient is tolerating a diet. MUSCULOSKELETAL: Complains of weakness. OBJECTIVE: VITAL SIGNS: Blood pressure is 117/70, pulse 80s. GENERAL: He is a chronically ill male, elderly, lying in bed on medical floor. HEENT: Head is atraumatic. Pupils are equal, roving to lights. Oropharynx is without exudate. Nares clear. NECK: There is no JVP. There is no thyromegaly. CARDIOVASCULAR: Regular. There is no S3 or S4 gallop. LUNGS: Coarse with equal thoracic movement. ABDOMEN: Soft, nondistended, and nontender. EXTREMITIES: Reveal no clubbing, no cyanosis. NEUROLOGICAL: He is awake. He is alert. He is at his baseline. LABORATORY DATA: Sodium 143, potassium 4.2, BUN 59, creatinine 3.4. IMPRESSION: * Acute renal failure. * Obstructive uropathy. * Hypertension. * Anemia. PLAN: The patient's creatinine continues to stabilize. The patient remains on the antibiotics. The patient had been seen by Urology and will need followup as an outpatient. I did have a long discussion with the patient and family. The patient will need to be discharged with the Parrish in place. We will continue to follow closely. If the patient is discharged, he can follow up in the Renal Clinic. TID: [id number] RECEIPT: [id number]
[2024-12-10] MEDS: APIXaban 5 MG TABLET PO SCH (20:31)
[2024-12-10] MEDS: carVEDIlol 12.5 MG TABLET PO SCH (20:31)
[2024-12-11] VITALS (8 sets, daily range): BP systolic 101–119; BP diastolic 61–87; PULSE 73–82; RESP 18–20; TEMP 97.4–98; O2SAT 97–98
[2024-12-11 06:21] LABS: HEMATOCRIT 31.1 % (42-54); MEAN CORPUSCULAR HEMOGLOBIN 32.2 pg (27.0-33.0); MEAN CORPUSCULAR HGB CONC 33.4 g/dL (32.0-36.0); MEAN CORPUSCULAR VOLUME 96.3 fL (79-99); RED BLOOD CELL COUNT(AUTO) 3.23 MIL/uL (4.50-6.20); RED CELL DISTRIBUTION WIDTH 12.7 % (11.0-15.5); WHITE BLOOD COUNT (AUTO) 12.2 K/uL (4.8-10.8)
[2024-12-11 06:30] LABS: POTASSIUM 4.2 mmol/L (3.5-5.1)
--- NOTE | 2024-12-11 09:03 | PN ---
FOLLOWUP PROGRESS NOTE SUBJECTIVE: A 74-year-old male with a history of BPH. The patient presented to the hospital with acute renal failure. The patient was found to have obstructive uropathy, as well as right-sided hydronephrosis. The patient's Parrish catheter placed and creatinine continues to improve. The patient was seen by Urology, and he is pending a repeat CT scan of the abdomen. The patient is being seen as a followup visit for all of the above. REVIEW OF SYSTEMS: CONSTITUTIONAL: He is feeling improved. HEENT: No change in vision. No change in hearing. CARDIOVASCULAR: There is no current chest pain or palpitation. PULMONARY: There is no shortness of breath. GASTROINTESTINAL: The patient is tolerating a diet. MUSCULOSKELETAL: Complains of weakness. PHYSICAL EXAMINATION: VITAL SIGNS: Blood pressure is 105/67, pulse 80s. He is afebrile. GENERAL: Chronically ill male, elderly, lying in bed on the medical floor. HEENT: Head is atraumatic. Pupils are equal, roving to light. Oropharynx is without exudate. Nares clear. NECK: There is no JVP. There is no thyromegaly, no mass. CARDIOVASCULAR: Regular. There is no S3 or S4 gallop. LUNGS: Coarse with equal thoracic movement. ABDOMEN: Soft, nondistended, and nontender. EXTREMITIES: Reveal no clubbing, no cyanosis. NEUROLOGICAL: He is awake. He is alert. LABORATORY DATA: BUN 54, creatinine 3, sodium 142. Hemoglobin 10, hematocrit 31. IMPRESSION: * Acute renal failure. * Obstructive uropathy. * Hypertension. * Anemia. PLAN: The patient's renal function continues to improve. The patient's urine output also improved. The patient is scheduled for a repeat CT scan of the abdomen. Workup is ongoing per Urology. Once the patient is discharged, the patient will follow up in the Renal Clinic. TID: [id number] RECEIPT: [id number]
--- NOTE | 2024-12-11 09:30 | PN ---
[facility] PROGRESS NOTE Date Patient Seen: Dec 11, 2024 Time of Visit: 09:30 Supervising Physician: Dr. Rene Dunlap Primary Care Physician: [Dr. Malloy] Outpatient Specialists: [ ] Inpatient Consults: [Dr. Giraldo-nephro, Dr. Smith-urology ] PROBLEM LIST: Severe Sepsis-POA Acute cystitis-Pseudomonas on culture DARIN 2/2 ATN CKD Dehydration-POA R/o pyelonephritis-POA Severe right hydronephrosis and mild hydroureter-POA Acute transient hypotension, resolved-POA BPH INTERVAL HISTORY: Patient evaluated following a CT scan this morning. Pending read out at this time. Patient is being followed by Urology, at this time he denies any discomfort, currently on room air and denies any urinary associated pain. He remains with catheter at this time, urine appears mi yellow, pyuria has subsided. Patient is currently pending evaluation of tortuous ureter for possible stent placement on this admission. His white count today is 12.2, creatinine trending downward at 3.0 today. Patient continues on levofloxacin. PLAN: Pending CT report today Continue with levofloxacin Pending evaluation by Urology for possible stent placement on this admission Continue with Parrish catheter Pseudomonas on urine culture REVIEW OF SYSTEMS: 12 point ROS reviewed with patient. Pertinent positives mentioned above. Otherwise negative. PHYSICAL EXAM: GENERAL: alert, weak, awake oriented x 3 HEENT: EOMI, Sclera non icteric, dry mucosa, poor dentition NECK: Supple, no JVD, trachea midline LUNGS: Clear breath sounds bilaterally. No wheezes HEART: Regular rate and rhythm. Normal S1 and S2, without murmurs ABD: Abdomen soft, nontender. Bowel sounds present EXT: No clubbing cyanosis or edema NEURO: Alert and oriented to person, follows commands Vital Signs (last 8hr) Date Time Temp Pulse Resp B/P (MAP) Pulse Ox O2 Delivery O2 Flow Rate FiO2 12/11/24 08:12 97.9 82 18 105/67 12/11/24 03:35 98.1 82 20 117/75 97 Room Air LABS: Hematology Labs: Test 12/11/24 05:32 12/10/24 05:26 Range/Units White Blood Count 12.2 H 4.8-10.8 K/uL Red Blood Count 3.23 L 4.50-6.20 MIL/uL Hemoglobin 10.4 L 14.0-18.0 g/dL Hematocrit 31.1 L 42-54 % Mean Corpuscular Volume 96.3 79-99 fL Mean Corpuscular Hemoglobin 32.2 27.0-33.0 pg Mean Corpuscular Hemoglobin Concent 33.4 32.0-36.0 g/dL Red Cell Distribution Width 12.7 11.0-15.5 % Platelet Count 279 130-400 K/uL Mean Platelet Volume 8.8 7.5-10.5 fL Nucleated Red Blood Cells 0.0 0.0-0.19 % Immature Granulocyte % (Auto) 1.5 H 0-1 % Neutrophils (%) (Auto) 79.7 H 40.0-77.0 % Lymphocytes (%) (Auto) 8.6 L 21.0-51.0 % Monocytes (%) (Auto) 8.9 3.0-13.0 % Eosinophils (%) (Auto) 1.1 0.0-8.0 % Basophils (%) (Auto) 0.2 0.0-5.0 % Neutrophils # (Auto) 9.8 H 1.8-7.7 K/uL Lymphocytes # (Auto) 1.1 1.0-4.8 K/uL Monocytes # (Auto) 1.1 H 0.1-1.0 K/uL Eosinophils # (Auto) 0.14 0.00-0.70 K/uL Basophils # (Auto) 0.02 0.00-0.20 K/uL Absolute Immature Granulocyte (auto 0.19 0-1 K/uL Chemistry Labs: Test 12/11/24 05:32 12/11/24 05:07 12/10/24 05:26 Range/Units Sodium Level 142 136-145 mmol/L Potassium Level 4.2 3.5-5.1 mmol/L Chloride Level 110 101-111 mmol/L Carbon Dioxide Level 24 21-32 mmol/L Blood Urea Nitrogen 54 H 7-18 mg/dL Creatinine 3.0 H 0.5-1.3 mg/dL Glomerular Filtration Rate Calc 21 >90 mL/min Random Glucose 101 70-105 mg/dL Total Calcium 8.7 8.5-10.1 mg/dL Whole Blood Glucose 103 70-110 MG/DL Phosphorus Level 3.6 2.5-4.9 mg/dL DIAGNOSTICS / RADIOLOGY RESULTS: [ ] PLAN NEURO: Minimize central acting medications as possible. Maintain fall precautions, adequate lighting during the day PULMONARY: Supplemental 02 as needed. Maintain aspiration precautions at all times CARDIOVASCULAR: Follow hemodynamics. Vital signs per facility protocol GI & NUTRITION: Continue with nutritional support. Continue stool softeners and laxatives as needed. KIDNEYS & ELECTROLYTES: Strict monitoring of intake, output and overall fluid balance. Avoid nephrotoxic medications to the extent possible. Medications to be dosed according to renal function. Monitor electrolytes and replace as needed ENDOCRINE: Maintain blood glucose between 100-180 at all times. Hypoglycemia protocol in place INFECTIOUS DISEASE: Trend temperature, WBC and procalcitonin level Follow cultures, deescalate antibiotics as soon as possible. Panculture if new onset fever ONCOLOGY/HEMATOLOGY/COAGULATION: Monitor for s/s of bleeding Monitor hemoglobin, coagulation studies as needed SKIN: Pressure ulcer prevention per facility protocol Specialty mattress ORTHO/REHAB: Continue PT/OT Prophylaxis: Continue GI and DVT prophylaxis Code Status: Full Resuscitation Disposition: TBD Other: Total patient care time: 35 minutes SAIGE SCOTT Dec 11, 2024 09:30
[2024-12-11] MEDS: atorVAStatin 20 MG TABLET PO SCH (09:32)
[2024-12-11] MEDS: finaSTERide 5 MG TABLET PO SCH (09:33)
[2024-12-11] MEDS: tamSULOsin HCL 0.4 MG CAP.ER.24H PO SCH (09:33)
--- NOTE | 2024-12-11 10:28 | HMCIMG ---
CT ABDOMEN/PELVIS W/O CONTRAST HISTORY: Interval improvement in upper tract drainage COMPARISON: 12/08/2024 TECHNIQUE: Multiple sequential axial images of the abdomen and pelvis were obtained from the dome of the diaphragm through symphysis pubis. Patient was not given contrast through intravenous route. Oral contrast was not given. FINDINGS: No pleural effusion is seen bilaterally. There is no evidence of parenchymal disease or pulmonary nodule of the visualized lower lungs. Degenerative changes of the thoracolumbar spine are present. The heart is not enlarged. The liver, spleen, adrenal glands and pancreas are unremarkable. Mild right hydronephrosis is seen improved from previous study. No hydronephrosis is seen on the left. No evidence of renal stone is seen. Fecal material is seen in the colon. There is diverticulosis. There are normal size retroperitoneal and mesenteric lymph nodes. No ascites is seen. Atherosclerotic changes are present. Pelvic sidewalls are symmetric bilaterally. Bladder is poorly distended with Parrish catheter. Bladder wall is thick measuring 2.3 cm. There is clinical suspicion for cystitis, new nodules correlation with helpful. IMPRESSION: 1. . Minimal right hydronephrosis is seen. Right perinephric fat stranding remains. Diverticulosis. Bladder wall thickening. CT was performed with one or more following dose reduction techniques: automated exposure control, adjustment of the mA and kv according to patient's size, or use of a iterative reconstruction technique.
--- NOTE | 2024-12-11 11:17 | NUR ---
DCP: HOME Pt currently lives alone. pt does not report any insecurities with food, alf, and/or utilities. Pt does not have any DME, home health, or provider services. Pt is able to complete ADLs independently. PCP is Dr. Elias Malloy and uses [facility] for any RX needs. At NH pt will want to go home and family will assist with transportation. Addendum: 12/11/24 at 1119 by YAMEL BEACH SS Amended: Links added.
--- NOTE | 2024-12-11 20:33 | PN ---
PROGRESS NOTE Date of Service: Dec 11, 2024 Time of Service: 20:31 SUBJECTIVE: Patient doing much better. Resting comfortably in a chair. Daughter present at bedside and we had a very long conversation. He already has a Parrish catheter in place the distal draining turbid urine. Blood pressures are holding steady. Renal function tests show a trend towards improvement. A repeat CT scan abdomen and pelvis without contrast obtained earlier today confirmed adequate decompression of the right collecting system following catheter placement for the last 2-3 days. The bladder is also completely decompress showing is true nature of thickening of the encinas. REVIEW OF SYSTEMS CONSTITUTIONAL: Denies fever, chills, or fatigue. HEAD/FACE: No signs of trauma. EENT: Denies eye pain, blurred vision, double vision, or light sensitivity. RESPIRATORY: Denies shortness of breath, cough, wheezing CARDIOVASCULAR: Denies chest pain, palpitation, syncope GASTROINTESTINAL/ABDOMINAL: Denies abdominal pain, constipation, diarrhea, nausea or vomiting GENITOURINARY: Denies dysuria or hematuria. MUSCULOSKELETAL: Denies joint pain, tenderness, or trauma. INTEGUMENTARY: Denies rash or itchiness NEUROLOGICAL/PSYCH: Denies anxiety, depression, heat or cold intolerance. PHYSICAL EXAM EYES: Anicteric. Pupils equal and reactive. HENT: No oral thrush seen, moist Oral mucosa NECK: Supple, no JVD or thyromegaly. LUNGS: Good air entry. No rales, no rhonchi. CARDIOVASCULAR: S1, S2 regular. No murmur heard. ABDOMEN: Soft, non tender, bowel sounds present, no organomegaly CENTRAL NERVOUS SYSTEM: Awake, alert, oriented x 3. No focal deficits. SKIN: No rashes, no swelling. LYMPHATICS: No peripheral lymphadenopathy MUSCULOSKELETAL: No joint swelling, erythema or tenderness. EXTREMITIES: No cyanosis or clubbing BACK: No deformity, no pressure ulcer. GENITOURINARY: Parrish catheter is in place draining andrea colored and turbid urine Vital Signs (last 8hr) Date Time Temp Pulse Resp B/P (MAP) Pulse Ox O2 Delivery O2 Flow Rate FiO2 12/11/24 16:52 97.5 79 18 101/61 96 Room Air LABS: Laboratory: Test 12/11/24 15:20 12/11/24 05:32 12/10/24 05:26 Range/Units Whole Blood Glucose 136 H 70-110 MG/DL White Blood Count 12.2 H 4.8-10.8 K/uL Red Blood Count 3.23 L 4.50-6.20 MIL/uL Hemoglobin 10.4 L 14.0-18.0 g/dL Hematocrit 31.1 L 42-54 % Mean Corpuscular Volume 96.3 79-99 fL Mean Corpuscular Hemoglobin 32.2 27.0-33.0 pg Mean Corpuscular Hemoglobin Concent 33.4 32.0-36.0 g/dL Red Cell Distribution Width 12.7 11.0-15.5 % Platelet Count 279 130-400 K/uL Mean Platelet Volume 8.8 7.5-10.5 fL Nucleated Red Blood Cells 0.0 0.0-0.19 % Sodium Level 142 136-145 mmol/L Potassium Level 4.2 3.5-5.1 mmol/L Chloride Level 110 101-111 mmol/L Carbon Dioxide Level 24 21-32 mmol/L Blood Urea Nitrogen 54 H 7-18 mg/dL Creatinine 3.0 H 0.5-1.3 mg/dL Glomerular Filtration Rate Calc 21 >90 mL/min Random Glucose 101 70-105 mg/dL Total Calcium 8.7 8.5-10.1 mg/dL Immature Granulocyte % (Auto) 1.5 H 0-1 % Neutrophils (%) (Auto) 79.7 H 40.0-77.0 % Lymphocytes (%) (Auto) 8.6 L 21.0-51.0 % Monocytes (%) (Auto) 8.9 3.0-13.0 % Eosinophils (%) (Auto) 1.1 0.0-8.0 % Basophils (%) (Auto) 0.2 0.0-5.0 % Neutrophils # (Auto) 9.8 H 1.8-7.7 K/uL Lymphocytes # (Auto) 1.1 1.0-4.8 K/uL Monocytes # (Auto) 1.1 H 0.1-1.0 K/uL Eosinophils # (Auto) 0.14 0.00-0.70 K/uL Basophils # (Auto) 0.02 0.00-0.20 K/uL Absolute Immature Granulocyte (auto 0.19 0-1 K/uL Phosphorus Level 3.6 2.5-4.9 mg/dL DIAGNOSTICS / RADIOLOGY: CT stone protocol shows a severely distended bladder with diverticuli, prostate is not too prominent, right-sided hydroureteronephrosis with proximal tortuosity of the ureter. A repeat CT scan abdomen and pelvis without contrast 12/11/2024 was reviewed. There was complete decompression of the right hydroureteronephrosis as well as the bladder. ASSESSMENT: 74-year-old man presents with chronic issues including urinary complaints diagnosed on imaging to have a chronic right-sided hydroureteronephrosis with bladder distention PLAN: 1. Repeat imaging obtained today confirms that patient might have neuromuscular bladder dysfunction. He would need outpatient urodynamics to confirm this diagnosis. 2. He will see us in clinic in the next 2-3 weeks to address further management. 3. Patient is cleared from a urological standpoint for discharge home with a Parrish catheter. Patient has a choice of a leg bag and or big bag. 30 minutes spent to complete this visit more than half of the time spent at bedside in counseling and coordination of care and addressing questions posed by patient but especially patient's daughter. Some time was spent discussing with members of his care team, the rest of the time was spent reviewing medical records. NEHA THORNE MD Dec 11, 2024 20:33
[2024-12-12 04:00] VITALS: BP 104/66; PULSE 69; RESP 20; TEMP 97.8
[2024-12-12 06:40] LABS: HEMATOCRIT 28.8 % (42-54); MEAN CORPUSCULAR HGB CONC 34.4 g/dL (32.0-36.0); MEAN CORPUSCULAR VOLUME 93.2 fL (79-99); RED BLOOD CELL COUNT(AUTO) 3.09 MIL/uL (4.50-6.20); RED CELL DISTRIBUTION WIDTH 12.5 % (11.0-15.5); WHITE BLOOD COUNT (AUTO) 10.3 K/uL (4.8-10.8)
[2024-12-12 07:08] LABS: POTASSIUM 3.7 mmol/L (3.5-5.1)
[2024-12-12 07:48] VITALS: BP 127/77; PULSE 75; RESP 20; TEMP 98.3
--- NOTE | 2024-12-12 09:55 | PN ---
FOLLOWUP PROGRESS NOTE SUBJECTIVE: A 74-year-old male with history of obstructive uropathy. The patient initially presented with acute renal failure. The patient was found to have significant hydronephrosis. Parrish catheter was placed. The patient had a repeat CT scan that revealed much improvement of the hydronephrosis. The patient with chronic renal insufficiency. Creatinine has improved and he is being seen as a followup visit for all of the above. REVIEW OF SYSTEMS: CONSTITUTIONAL: He is feeling improved since admission. HEENT: No change in vision. No change in hearing. CARDIOVASCULAR: There is no current chest pain or palpitations. PULMONARY: There is no shortness of breath. GASTROINTESTINAL: He is tolerating a diet. MUSCULOSKELETAL: Complains of weakness. PHYSICAL EXAMINATION: VITAL SIGNS: Blood pressure 127/77, pulse in the 70s, he is afebrile. GENERAL: He is a chronically ill male, lying in bed on the medical floor. HEENT: Head is atraumatic. Pupils are equal and roving to light. Oropharynx is without exudate. Nares are clear. NECK: There is no JVP. There is no thyromegaly, no mass. CARDIOVASCULAR: Regular. There is no S3, S4, gallop. LUNGS: Coarse with equal thoracic movement. ABDOMEN: Soft, nondistended, and nontender. EXTREMITIES: No clubbing or cyanosis. NEUROLOGICAL: He is awake. He is alert. LABORATORY DATA: Hemoglobin 9.9, hematocrit 28, sodium 142, potassium 3.7. BUN 49, creatinine is 3. IMPRESSION: * Acute on chronic renal failure. * Obstructive uropathy. * Hypertension. * Anemia. PLAN: The patient's creatinine has improved with the Parrish catheter. He has a history of known chronic renal insufficiency. Repeat CT scan did reveal improvement of the hydronephrosis. Workup is ongoing per Urology. There is no acute need for any form of renal replacement therapy. If the patient is discharged, the patient can follow up in the renal clinic. TID: [id number] RECEIPT: [id number]
[2024-12-12 11:57] VITALS: BP 105/71; PULSE 72; RESP 18; TEMP 97.8
[2024-12-12] MEDS ORDERED: LEVO750T68 PO (15:24)
--- NOTE | 2024-12-12 15:25 | DS ---
[facility] DISCHARGE SUMMARY Date Patient Seen: Dec 12, 2024 Time of Visit: 15:25 Supervising Physician: Dr. Dl Self Primary Care Physician: [Dr. Elias Malloy] Inpatient Consults: [Dr. Giraldo-nephjorge, Dr. Smith-urology ] PROBLEM LIST: Severe Sepsis, POA Acute cystitis (+) Pseudomonas, RX for levaquin every 48 hours x 5 days Neuromuscular bladder dysfunction S/P Christie catheter insertion, discharged with Christie with leg bag per urology DARIN on CKD stage III Dehydration, POA, resolved Severe right hydronephrosis and mild hydroureter, POA, improved Acute transient hypotension, resolved, POA BPH HPI (per admitting provider): Renetta is a 74-year-old male with PMH significant for BPH who was sent by his PCP's clinic due to BP in the 60's. Patient reports decreased urine output, fever, chills, dysuria, generalized weakness, fatigue and urinary frequency since last Wednesday. He came today to Dr. Malloy's clinic and was told his BP was low and needs to go to the hospital. He was told he will need to have a kidney stent placed but he is just waiting to be referred to a urologist. He denies abdominal or flank pain. Patient claims his only problem is BPH and denies other medical conditions. He was flagged meeting the sepsis criteria and was given IV fluids and IV Rocephin. Physical assessment was unrevealing without abdominal tenderness. On the side note: consulted urologist, Dr. Smith and will see the patient tonight. okayed to insert christie. ] HOSPITAL COURSE: Patient was admitted due to hypotension at PCP office. He was found to have sepsis due to cystitis positive for pseudomonas, DARIN and severe hydronephrosis. He was treated with IV ABX. Urology and nephrology consulted. Christie catheter was inserted due to severe right hydronephrosis and mild hydroureter with repeat CT abdomen showing improvement. Today, patient is AAOX3. Currently on room air. Able to voice needs and follow commands. Christie bag will be changed to leg bag. Denies any abdominal pain, nausea or vomiting. Stable for discharge. Vital signs are stable. Labs are within limits. Patient has been advised to follow-up with PCP in next 1 to 2 days and urology and nephrology. Medication reconciliation has been completed. RX with new medications sent to pharmacy (see list below). Education regarding current diagnoses has been provided to the patient. Discussed s/s that would warrant return to the emergency department. All questions have been answered. Patient to be discharged home. MECHANICAL DETAILER FINDINGS/RECOMMENDATIONS: [ ] PROCEDURES: as mentioned above DISCHARGE MEDICATIONS: Pt hemodynamically stable and afebrile at time of discharge. PCP notified of patients admission, hospital course and discharge. New Medications: Levofloxacin (Levaquin 750Mg Tabs) 750 Mg Tablet 750 MG PO QODAY for 10 Days, #5 TAB Continued Medications: Apixaban (Eliquis) 5 Mg Tablet 1 TAB PO BID Atorvastatin Calcium (Atorvastatin Calcium) 20 Mg Tablet 1 TAB PO DAILY Carvedilol (Carvedilol) 12.5 Mg Tablet 1 TAB PO BID Finasteride (Finasteride) 5 Mg Tablet 1 TAB PO DAILY Metformin HCl (Metformin HCl) 500 Mg Tablet 1 TAB PO DAILY Midodrine HCl (Midodrine HCl) 5 Mg Tablet 1 TAB PO BID [Tamsulosin] () 0.4 MG PO DAILY PHYSICAL EXAM: GENERAL: alert, weak, awake oriented x 3 HEENT: EOMI, Sclera non icteric, dry mucosa, poor dentition NECK: Supple, no JVD, trachea midline LUNGS: Clear breath sounds bilaterally. No wheezes HEART: Regular rate and rhythm. Normal S1 and S2, without murmurs ABD: Abdomen soft, nontender. Bowel sounds present EXT: No clubbing cyanosis or edema NEURO: Alert and oriented to person, follows commands FOLLOW-UP: Follow-up with PCP in 2-3 days Follow up with urology and nephrology RECOMMENDATIONS: See Discharge Instructions This case was seen and discussed with my supervising physician. More than 30 minutes spent on discharge process, including evaluation of the patient, discussion with nursing staff, medication reconciliation and follow-up appointments KERLINE SELF NP Dec 12, 2024 15:25
--- NOTE | 2024-12-12 16:36 | NUR ---
Discharge Patient been discharge home, all discharge instructions given to patient and Chelsi, daughter, all questions answered, no concerns at this time, aware needs to follow up with PCP, Dr. Malloy in 2-3 days post discharge, and Dr. Smith in 2 weeks, phone number provided, christie bag changed to leg bag as requested, extra bag provided, aware levaquin prescription sent to pharmacy of choice.
[2024-12-12] MEDS ORDERED: atorVAStatin 20 MG TABLET PO SCH (21:00)
== END 2024-12-12 16:42 | disposition home or self-care (01) | DRG 871 ==
LOC: EDH 12:22 → OBSVTOIN 15:42 → EDHIP 15:42 → 3CH 18:59
PROVIDERS: ADMIT Internal Medicine Critical Care Medicine; ATTEND Internal Medicine Critical Care Medicine
DX: A41.52 Sepsis due to Pseudomonas (principal); N17.0 Acute kidney failure with tubular necrosis; N13.6 Pyonephrosis; N18.4 Chronic kidney disease, stage 4 (severe); R65.20 Severe sepsis without septic shock; D64.9 Anemia, unspecified; E86.0 Dehydration; I12.9 Hypertensive chronic kidney disease with stage 1 through stage 4 chronic kidney disease, or unspecified chronic kidney disease; N32.89 Other specified disorders of bladder; N40.0 Benign prostatic hyperplasia without lower urinary tract symptoms; Z87.440 Personal history of urinary (tract) infections; Z79.899 Other long term (current) drug therapy
CPT/HCPCS: 36415; 36600; 74176; 76770; 80048; 80051; 80053; 81001; 82550; 82570; 82803; 82948; 83605; 83880; 84100; 84145; 84156; 84166; 84484; 85025; 85027; 85610; 85730; 87040; 87086; 87186; 93005; 96374; 99291; A4344; G0378; J0696; J1956; J7120